=== PATIENT | male | born 1965 | race Caucasian/White ===

== ENCOUNTER → 2018-08-28 19:31 | Emergency (ER) | payer BC, OTHER ==
[~2018-08-28 19:31] MED LIST: Bacitracin OINTMENT* 0.5% 0.5 oz TUBE ONE; Bacitracin OINTMENT* 0.5% 0.5 oz TUBE TOPICAL ONE; Ciprofloxacin TAB* 500 MG PO ONE; Sulfamethox/Trimethoprim DS 800/160* TAB PO ONE; oxyCODONE TAB* 5 MG TAB PO ONE
--- NOTE | 2018-08-28 22:05 | ED ---
Laceration/Wound HPI - HPI Summary HPI Summary: Patient sent from urgent care to ED complains of running lawnmower over the first 3 toes of right foot today. Patient was wearing rubber boots. Denies any other pain injury or symptoms. No anti-coag. Tetanus status up-to-date. X -ray done at urgent care pending radiology read. - History of Current Complaint Stated Complaint: RT FOOT INJURY & LAC/POSS BROKEN TOES PER PT Time Seen by Provider: 08/28/18 20:07 Hx Obtained From: Patient Mechanism of Injury: Sharp/Blunt Trauma Onset Severity: Moderate Current Severity: Moderate Pain Intensity: 5 Pain Scale Used: 0-10 Numeric Associated Signs & Symptoms: Pain - Allergy/Home Medications Allergies/Adverse Reactions: Allergies Allergy/AdvReac Type Severity Reaction Status Date / Time MS Penicillins [Penicillins] Allergy Unknown Verified 08/28/18 19:39 Reaction Details PMH/Surg Hx/FS Hx/Imm Hx Endocrine/Hematology History: Denies: Hx Diabetes Cardiovascular History: Denies: Hx Pacemaker/ICD Respiratory History: Reports: Hx Asthma - A CHILD History: Denies: Hx Renal Disease Sensory History: Reports: Hx Contacts or Glasses - GLASSES Denies: Hx Hearing Aid Opthamlomology History: Reports: Hx Contacts or Glasses - GLASSES EENT History: Denies: Hx Deafness Neurological History: Reports: Other Neuro Impairments/Disorders - ADHD Psychiatric History: Reports: Hx Depression - Surgical History Surgery Procedure, Year, and Place: LIPOMA BACK EXC 1999. LEFT HAND 1989 Hx Anesthesia Reactions: No Infectious Disease History: No Infectious Disease History: Denies: Traveled Outside the [place] in Last 30 Days - Family History Known Family History: Positive: Non-Contributory - Social History Alcohol Use: Weekly Alcohol Amount: 2X/WEEK Substance Use Type: Reports: None Smoking Status (MU): Never Smoked Tobacco Review of Systems Constitutional: Negative Eyes: Negative ENT: Negative Cardiovascular: Negative Respiratory: Negative Gastrointestinal: Negative Genitourinary: Negative Musculoskeletal: Negative Skin: Other Neurological: Negative Psychological: Normal All Other Systems Reviewed And Are Negative: Yes Physical Exam - Summary Physical Exam Summary: Laceration over distal tip of right great toe that does not involve nail or nailbed. And very small superficial facial laceration over toenail of second toe of right foot, with no involvement of the nailbed. PMS intact. Mild pain with palpation of first 2 toes. Triage Information Reviewed: Yes Vital Signs On Initial Exam: Initial Vitals Temp Pulse Resp BP Pulse Ox 98.0 F 65 15 159/102 99 08/28/18 19:37 08/28/18 19:37 08/28/18 19:37 08/28/18 19:37 08/28/18 19:37 Vital Signs Reviewed: Yes Appearance: Positive: Well-Appearing Skin: Positive: Warm Head/Face: Positive: Normal Head/Face Inspection Eyes: Positive: Normal Neck: Positive: Supple Respiratory/Lung Sounds: Positive: Clear to Auscultation Cardiovascular: Positive: Normal Abdomen Description: Positive: Nontender Musculoskeletal: Positive: Normal Neurological: Positive: Normal Psychiatric: Positive: Normal AVPU Assessment: Alert - Ogilvie Coma Scale Best Eye Response: 4 - Spontaneous Best Motor Response: 6 - Obeys Commands Best Verbal Response: 5 - Oriented Coma Scale Total: 15 Procedures - Laceration/Wound Repair 1 Location: lower extremity Description: Linear Anesthesia: Digital, 1.0% Length, Depth and Shape: 3cm x .5 cm Betadine Prep?: Yes Irrigated w/ Saline (ccs): 200 Laceration/Wound Explored: clean Debridement: minimal Number of Sutures: 6 - 4.0 ethilon Layer Closure?: No Sterile Dressing Applied?: No Diagnostics - Vital Signs Vital Signs Temp Pulse Resp BP Pulse Ox 08/28/18 19:37 98.0 F 65 15 159/102 99 - Laboratory Lab Statement: Any lab studies that have been ordered have been reviewed, and results considered in the medical decision making process. Laceration Repair Course/Dx - Course Course Of Treatment: Patient sent from urgent care to ED complains of running lawnmower over the first 3 toes of right foot today. Patient was wearing rubber boots. Denies any other pain injury or symptoms. No anti-coag. Tetanus status up-to-date. X-ray done at urgent care pending radiology read. Physical exam:Laceration over distal tip of right great toe that does not involve nail or nailbed. And very small superficial facial laceration over toenail of second toe of right foot, with no involvement of the nailbed. PMS intact. Mild pain with palpation of first 2 toes. Vital signs within normal limits. X-ray read by this provider and attending physician with no fracture or bony involvement noted. Radiology read pending. Wound and great toe cleaned and sutured. Small laceration involving disruption of nailbed of second toe did not involve nail bed and did not require suturing. Toenail of second toe disrupted but remained in place, with no disruption of nailbed. Covered with Band-Aid. Patient was placed on Cipro as boots that patient was wearing during event were made up of rubber and neoprene. Tetanus booster was not administered during stay in the ED. Patient was called at 9:41 PM 08/29/18 advising patient to get tetanus booster if he had not received one within the past 5 years. Patient did not answer phone, voicemail was left advising patient to get tetanus booster at primary care or urgent care. - Clinical Impression Provider Diagnoses: Foot injury, Laceration Discharge - Sign-Out/Discharge Documenting (check all that apply): Patient Departure Patient Received Moderate/Deep Sedation with Procedure: No - Discharge Plan Condition: Stable Disposition: HOME Prescriptions: Ciprofloxacin HCl [Cipro] 500 mg PO BID 5 Days #10 tablet Oxycodone HCl 5 mg PO TID 2 Days #4 tablet MDD 3 tabs Patient Education Materials: Care For Your Stitches (ED), Laceration (ED) Referrals: Virgilio Blas MD [Primary Care Provider] - Additional Instructions: Sutures out in 10 days. Keep wound clean and dry. May wash with warm running water and soap. Cover with Band-Aid and antibiotic ointment. Take antibiotics as directed to prevent infection. Follow-up with primary care. Return to the ED for any new or worsening symptoms. - Billing Disposition and Condition Condition: STABLE Disposition: Home
[2018-08-28 22:31] VITALS: BP 142/78
== END | disposition home or self-care (01) ==
LOC: ED 19:31
DX: S91.111A Laceration without foreign body of right great toe without damage to nail, initial encounter (principal); W28.XXXA Contact with powered lawn mower, initial encounter; Y93.H2 Activity, gardening and landscaping; Y92.9 Unspecified place or not applicable; S91.114A Laceration without foreign body of right lesser toe(s) without damage to nail, initial encounter; Z23 Encounter for immunization; F32.9 Major depressive disorder, single episode, unspecified
CPT/HCPCS: 12001; 90471; 99282; A9270-GY